=== PATIENT | male | born 1945 | race Caucasian/White ===

== ENCOUNTER → 2018-03-23 | Outpatient (CLI) | payer MEDICARE, OTHER | LOC: M RAD 07:18 | DX: I51.7 Cardiomegaly (principal); R06.02 Shortness of breath; R79.1 Abnormal coagulation profile; Z95.1 Presence of aortocoronary bypass graft | CPT/HCPCS: 71046 ==

== ENCOUNTER 2019-04-15 14:28 | Emergency (ER) | payer MEDICARE, OTHER ==
[~2019-04-15] VITALS: Ht 175.3 cm; Wt 100.0 kg
[2019-04-15] MEDS ORDERED: TORS20TA2 (14:42)
[2019-04-15] MEDS ORDERED: ENTR1TAB (14:42)
[2019-04-15] MEDS ORDERED: TAMS1CAP17 (14:42)
[2019-04-15] MEDS ORDERED: TRAM50TA2 PO (14:42)
[2019-04-15] MEDS ORDERED: TRAD5TAB (14:42)
[2019-04-15] MEDS ORDERED: ASPI81TA85 PO (14:42)
[2019-04-15] MEDS ORDERED: LOVA1CAP17 PO (14:42)
[2019-04-15] MEDS ORDERED: WARF-23 (14:42)
[2019-04-15] MEDS ORDERED: GLIM2TAB29 (14:42)
[2019-04-15] MEDS ORDERED: ZYLO300T6 (14:42)
--- NOTE | 2019-04-15 17:20 | REPVR ---
EXAM: US Duplex Left Lower Extremity Veins, Limited EXAM DATE/TIME: 04/15/2019 4:29 PM CLINICAL HISTORY: 73 years old, male; Pain and injury or trauma; Fall; Follow-up exam; Lacerated extremity blood vessel; Leg, lower; Left; Additional info: Fall injury/swelling TECHNIQUE: Imaging protocol: Real-time Duplex ultrasound of the Left Lower Extremity with 2-D benz scale, color Doppler flow and spectral waveform analysis with image documentation. Limited exam focused on the left lower extremity veins. COMPARISON: No relevant prior studies available. FINDINGS: Left deep veins: Unremarkable. The common femoral, femoral, popliteal and visualized calf veins are patent without thrombus. Normal compressibility, augmentation response and Doppler waveforms. Left superficial veins: Unremarkable. Saphenofemoral junction is patent without thrombus. Soft tissues: 4.9 x 3.5 x 3.6 cm complex, avascular collection along the proximal aspect of the thigh, corresponding to the patient's palpable abnormality, likely a hematoma. IMPRESSION: 1. No sonographic evidence of deep vein thrombosis. 2. 4.9 x 3.5 x 3.6 cm complex, avascular collection along the proximal aspect of the thigh, corresponding to the patient's palpable abnormality, likely a hematoma. Electronically signed by: Scott Matthews On 04/15/2019 17:19:43 PM
[2019-04-15 18:19] VITALS: BP 118/70
== END 2019-04-15 18:19 | disposition home or self-care (01) ==
LOC: M ED 14:28
DX: S80.12XA Contusion of left lower leg, initial encounter (principal); W18.00XA Striking against unspecified object with subsequent fall, initial encounter; Y92.814 Boat as the place of occurrence of the external cause; Y93.89 Activity, other specified; Y99.9 Unspecified external cause status; M79.605 Pain in left leg; E11.9 Type 2 diabetes mellitus without complications; I10 Essential (primary) hypertension; Z95.0 Presence of cardiac pacemaker; Z95.5 Presence of coronary angioplasty implant and graft; Z79.82 Long term (current) use of aspirin; Z79.01 Long term (current) use of anticoagulants; Z79.899 Other long term (current) drug therapy

== ENCOUNTER → 2020-04-18 | Emergency (ER) | payer MEDICARE, BC, OTHER ==
[~2020-04-18] MED LIST: AMIODARONE HCL 150 MG/100 ML PREMIXED BAG (NEXTERONE) (J0282 PER 30MG) As Ordered ONE; AMIODARONE HCL 150 MG/100 ML PREMIXED BAG (NEXTERONE) (J0282 PER 30MG) ONE; AMIODARONE HCL 360 MG/200 ML PREMIXED BAG (NEXTERONE) (J0282 PER 30MG) As Ordered ONE; AMIODARONE HCL 360 MG/200 ML PREMIXED BAG (NEXTERONE) (J0282 PER 30MG) ONE; ASPI81TA86 PO; D5W As Ordered ONE; D5W ONE; ENTR1TAB; FUROSEMIDE 20MG/2ML VIAL (J1940) As Ordered ONE; FUROSEMIDE 20MG/2ML VIAL (J1940) ONE; FUROSEMIDE 40MG/4ML VIAL (J1940) As Ordered ONE; FUROSEMIDE 40MG/4ML VIAL (J1940) ONE; GLIM2TAB29; LIDOCAINE As Ordered ONE; LIDOCAINE ONE; LOVA1CAP17 PO; NITROGLYCERIN 2% OINT 1 GM *U/D* PKT As Ordered ONE; NITROGLYCERIN 2% OINT 1 GM *U/D* PKT ONE; POTASSIUM CHLORIDE 10 MEQ SR TABLET As Ordered ONE; POTASSIUM CHLORIDE 10 MEQ SR TABLET ONE; TAMS1CAP17; TORS20TA2; TRAD5TAB; TRAM50TA2 PO; WARF-23; ZYLO300T6
--- NOTE | 2020-05-27 16:53 | ECGEPIP ---
ELECTRONIC VENTRICULAR PACEMAKER ABNORMAL RHYTHM ECG SEE SCANNED DOWNTIME REPORT MTDD
[2020-06-04 11:55] LABS: INR 3.54; PROTHROMBIN TIME 36.2 SECONDS (12.5-14.3)
[2020-06-04 17:17] LABS: BASO % 0.5 % (0.0-1.0); EOS # 0.2 10^3/uL (0.0-0.5); EOS % 3.2 % (0.0-3.0); HEMATOCRIT 38.7 % (42.0-52.0); HEMOGLOBIN 12.5 g/dl (13.5-17.5); LYMPH # 1.1 10^3/uL (1.5-5.0); LYMPH % 17.6 % (24.0-44.0); MEAN CORPUSCULAR HEMOGLOBIN 36.2 pg (27.0-33.0); MEAN CORPUSCULAR HGB CONC 32.3 g/dl (32.0-36.5); MEAN CORPUSCULAR VOLUME 112.2 fl (80.0-96.0); MONO # 0.5 10^3/uL (0.0-0.8); MONO % 7.5 % (0.0-5.0); NEUTROPHILS # 4.3 10^3/uL (1.5-8.5); NEUTROPHILS % 70.9 % (36.0-66.0); PLATELET COUNT, AUTOMATED 137 10^3/uL (150-450); RED BLOOD COUNT 3.45 10^6/uL (4.30-6.10)
[2020-07-07 20:27] LABS: ALBUMIN 3.6 GM/DL (3.2-5.2); BILIRUBIN,DIRECT 0.4 MG/DL (0.0-0.2); BILIRUBIN,TOTAL 1.2 MG/DL (0.2-1.0); CALCIUM LEVEL 8.7 MG/DL (8.8-10.2); CREATININE FOR GFR 2.48 MG/DL (0.70-1.30); GLOMERULAR FILTRATION RATE 27.4 (>42); MAGNESIUM LEVEL 2.4 MG/DL (1.8-2.4); POTASSIUM SERUM 3.1 MEQ/L (3.5-5.1); TOTAL PROTEIN 7.8 GM/DL (6.4-8.2)
== END | disposition short-term general hospital (02) ==
LOC: M ED 03:33
DX: I21.4 Non-ST elevation (NSTEMI) myocardial infarction (principal); I47.2 Ventricular tachycardia; I50.9 Heart failure, unspecified; N28.9 Disorder of kidney and ureter, unspecified; R94.31 Abnormal electrocardiogram [ECG] [EKG]; E11.9 Type 2 diabetes mellitus without complications; I25.10 Atherosclerotic heart disease of native coronary artery without angina pectoris; I10 Essential (primary) hypertension; Z95.1 Presence of aortocoronary bypass graft; Z95.4 Presence of other heart-valve replacement; Z95.0 Presence of cardiac pacemaker; Z79.02 Long term (current) use of antithrombotics/antiplatelets; Z79.899 Other long term (current) drug therapy
CPT/HCPCS: 71045; 80053; 82248; 83690; 83735; 83880; 84484; 85025; 85610; 93005; 96374; 96375; 99291; 99292; J0282; J1940; U0002